=== PATIENT | male | born 1990 | race Caucasian/White ===

== ENCOUNTER → 2019-01-14 | Emergency (ER) | payer SELFPAY | END | disposition home or self-care (01) | LOC: FTE 12:47 | DX: G51.0 Bell's palsy (principal) | CPT/HCPCS: 99283 ==

== ENCOUNTER 2019-01-15 12:03 | Emergency (ER) | payer SELFPAY | END 2019-01-15 15:11 | disposition home or self-care (01) | LOC: E/R 12:03 | DX: G51.0 Bell's palsy (principal) | CPT/HCPCS: 70450; 99284-25 ==